=== PATIENT | female | born 1935 | race Caucasian/White ===

== ENCOUNTER 2017-09-15 17:46 | Emergency (ER) | payer OTHER ==
[~2017-09-15] VITALS: Ht 157.5 cm; Wt 70.8 kg
--- NOTE | ~2017-09-15 | EKG ---
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
[2017-09-15 18:27] LABS: HEMATOCRIT 41.9 % (37.0-47.0); HEMOGLOBIN 14.2 gm/dL (12.0-15.0); MCH 29.1 pg (26.0-34.0); MCHC 33.8 g/dL (28.0-37.0); MCV 86.1 fL (80.0-100.0); PLATELET COUNT 400 thou/uL (150-400); RBC 4.87 mil/uL (4.20-5.00); RDW 13.2 % (10.5-14.5); WBC 11.4 thou/uL (4.0-11.0)
[2017-09-15 18:35] LABS: ANION GAP 12 mmol/L (7-16); BUN 20 mg/dL (7-18); CALCIUM 10.5 mg/dL (8.5-10.1); CHLORIDE 100 mmol/L (98-107); CO2 24 mmol/L (21-32); CREATININE 1.2 mg/dL (0.6-1.0); GLUCOSE 130 mg/dL (74-106); POTASSIUM 3.6 mmol/L (3.5-5.1); SODIUM 136 mmol/L (136-145)
[2017-09-15 18:43] LABS: ALBUMIN 3.7 g/dL (3.4-5.0); MAGNESIUM 1.5 mg/dL (1.8-2.4); SGOT 43 U/L (15-37); SGPT 77 U/L (30-65); TOTAL BILIRUBIN 0.6 mg/dL (<0.1-1.0); TOTAL PROTEIN 7.6 g/dL (6.4-8.2); TROPONIN-I < 0.04 ng/mL (<0.06)
[2017-09-15] MEDS ORDERED: TESSALON PERLE100 MG PO (18:53)
[2017-09-15 18:54] LABS: ABSOLUTE NEUTROPHILS 5.2 thou/uL (1.4-8.2)
[2017-09-15] MEDS ORDERED: INDOMETHACIN 2525 MG PO (18:54)
[2017-09-15] MEDS ORDERED: GLUCOPHAGE XR500 MG PO (18:54)
[2017-09-15] MEDS ORDERED: LIPITOR 20 MG T20 M1 PO (18:54)
[2017-09-15 18:55] LABS: ANISOCYTOSIS 1+; POLYCHROMASIA OCCASIONAL
[2017-09-15] MEDS ORDERED: BENADRYL25 MG PO (18:55)
[2017-09-15] MEDS ORDERED: NEXIUM40 MG PO (18:55)
[2017-09-15] MEDS ORDERED: LOPRESSOR25 PO (18:56)
[2017-09-15] MEDS ORDERED: AMITRIPTYLINE H25 M2 PO (18:56)
[2017-09-15] MEDS ORDERED: LISINOPRIL-HCT1 EAC1 PO (18:56)
[2017-09-15 21:09] LABS: URINE BILIRUBIN NEGATIVE (Negative); URINE BLOOD TRACE (Negative); URINE CLARITY CLEAR; URINE COLOR YELLOW; URINE GLUCOSE-RANDOM* NEGATIVE (Negative); URINE KETONES TRACE (Negative); URINE NITRITE-REFLEX NEGATIVE (Negative); URINE PROTEIN (DIPSTICK) NEGATIVE (Negative); URINE SPECIFIC GRAVITY <= 1.005 (1.005-1.035); URINE UROBILINOGEN 0.2 E.U./dl (0.2-1.0)
[2017-09-15 21:12] LABS: URINE LEUKOCYTES-REFLEX 3+ (Negative)
[2017-09-15 21:23] LABS: BACTERIA-REFLEX 1-9 Few /HPF (None Seen); CASTS None Seen /LPF (None Seen); SQUAMOUS 0-3 Few /LPF (0-3); URINE RBC 0-2 Rare /HPF (0-2); URINE WBC-REFLEX >25 Many /HPF (0-5)
[2017-09-15 21:24] LABS: CRYSTALS None Seen /LPF (None Seen)
[2017-09-15] MEDS ORDERED: KEFLEX500 M1 PO (21:49)
== END 2017-09-15 22:30 | disposition home or self-care (01) ==
LOC: ER 17:46
PROVIDERS: Emergency Medicine
DX: N39.0 Urinary tract infection, site not specified (principal); R10.30 Lower abdominal pain, unspecified; R19.7 Diarrhea, unspecified; E86.0 Dehydration; I10 Essential (primary) hypertension; E11.9 Type 2 diabetes mellitus without complications; K52.9 Noninfective gastroenteritis and colitis, unspecified; M10.9 Gout, unspecified; G89.29 Other chronic pain; K21.9 Gastro-esophageal reflux disease without esophagitis; M19.90 Unspecified osteoarthritis, unspecified site; Z88.6 Allergy status to analgesic agent; Z88.5 Allergy status to narcotic agent